=== PATIENT | female | born 1965 | race Caucasian/White ===

== ENCOUNTER 2016-08-12 08:25 | Emergency (ER) | payer OTHER ==
[~2016-08-12 08:25] MED LIST: ALBU17IN INH; ASPI325T PO; AZIT250T3 PO; CEFD1CAP8 PO; CETI10TA PO; CIPR500T89 PO; FLAG500T PO; OMEP20CA3 PO; OXYC1TAB23 PO; PERCOCET PO; REGL10TA6 PO; TYLE325T5 PO; ZYRT10CA PO
[2016-08-12] MEDS ORDERED: ASPIRIN 81 MG CHEW TABLET As Ordered ONE (08:51)
[2016-08-12] MEDS ORDERED: ONDANSETRON 4MG/2ML VIAL (J2405) As Ordered ONE (08:52)
[2016-08-12] MEDS ORDERED: MORPHINE 2 MG/ML 1ML SYRINGE As Ordered ONE ×3 (08:52→09:47)
--- NOTE | 2016-08-12 09:26 | REP ---
Clinical: chest pain. Comparison: 10/28/2014. Findings: The mediastinum and cardiac silhouette are stable and within normal limits for portable technique. The lung meza are clear without acute consolidation, effusion, or pneumothorax. Skeletal structures are intact. Impression: Normal portable chest x-ray Signed by Crow Mcbride MD 08/12/2016 09:17 A
[2016-08-12 10:11] LABS: BASO % 0.3 % (0.0-1.0); EOS % 0.5 % (0.0-3.0); LARGE UNSTAINED CELL # 0.1 K/mm3 (0.0-0.4); LARGE UNSTAINED CELL % 2.7 % (0.0-4.0); LYMPH # 0.7 K/mm3 (1.5-4.5); LYMPH % 15.5 % (24.0-44.0); MEAN CORPUSCULAR HEMOGLOBIN 28.7 pg (27.0-33.0); MEAN CORPUSCULAR HGB CONC 32.1 g/dl (32.0-36.5); MEAN CORPUSCULAR VOLUME 89.4 fl (80.0-96.0); MONO # 0.2 K/mm3 (0.0-0.8); MONO % 5.5 % (0.0-5.0); NEUTROPHILS # 3.4 K/mm3 (1.8-7.7); NEUTROPHILS % 75.5 % (36.0-66.0); PLATELET COUNT, AUTOMATED 381 k/mm3 (150-450); RED CELL DISTRIBUTION WIDTH 12.5 % (11.5-14.5); WHITE BLOOD COUNT 4.4 K/mm3 (4.0-10.0)
[2016-08-12 10:37] LABS: ANION GAP 11 MEQ/L (8-16); BLOOD UREA NITROGEN 15 MG/DL (7-18); CALCIUM LEVEL 9.8 MG/DL (8.5-10.1); CARBON DIOXIDE LEVEL 29 MEQ/L (21-32); CHLORIDE LEVEL 101 MEQ/L (98-107); CREATININE FOR GFR 0.65 MG/DL (0.55-1.02); GLOMERULAR FILTRATION RATE > 60.0 (>51); GLUCOSE, FASTING 112 MG/DL (70-105); SODIUM LEVEL 141 MEQ/L (136-145)
[2016-08-12] MEDS ORDERED: ISOVUE-370 76% 100ML VIAL (Q9967) As Ordered ONE (10:52)
--- NOTE | 2016-08-12 11:24 | REP ---
Clinical: Acute chest pain. Technique: Axial contrast enhanced images from the thoracic inlet to the upper abdomen using 100 ml Isovue 370 intravenous contrast material with coronal and sagittal re-formations. Findings: Satisfactory enhancement of the pulmonary vasculature is achieved and no filling defects are identified to suggest pulmonary embolus. Thoracic aorta is normal caliber without aneurysm or dissection. Heart and pericardium are normal. Bilateral lung meza are well aerated with a small focus of atelectasis and possible early infiltrate involving the anterior left lower lobe (images 65 - 80). No nodule or mass lesion. No pleural effusion/reaction. No pneumothorax. No adenopathy. Impression: 1. No evidence for pulmonary embolus. 2. Very subtle area of atelectasis/early infiltrate involving the left lower lobe should be correlated with physical examination. Signed by Crow Mcbride MD 08/12/2016 11:15 A
[2016-08-12] MEDS ORDERED: PERCOCET 5MG/325MG TAB As Ordered ONE (11:26)
--- NOTE | 2016-08-12 13:36 | EDDOCDS ---
Physician Documentation [facility] Name: Delores Salgado Age: 51 yrs Sex: Female : 1965 Arrival Date: 08/12/2016 Time: 08:25 Bed 11 Private MD: David Becerril PA-C Disposition: 08/12/16 13:04 Discharged to Home/Self Care. Impression: Chest pain, unspecified, Abnormal findings on diagnostic imaging of lung. - Condition is Stable. - Discharge Instructions: Nonspecific Chest Pain. - Prescriptions for Colace 100 mg Oral Capsule - take 1 tablet by ORAL route every 12 hours; 8 tablet. Percocet 5- 325 mg Oral Tablet - take 1 tablet by ORAL route every 8-12 hours As needed MDD: 4 tabs; 10 tablet. - Medication Reconciliation, Local Pharmacy Hours form. - Follow up: David Becerril; When: Call to arrange an appointment; Reason: Continuance of care. - Problem is new. - Symptoms are unchanged. - Notes: You have been evalutated for chest pain. Your CT showed ateletasis verses infiltrate or early infection. You are currently on an antibiotic that is appropriate for a developing pneumonia. Please follow up with us within the next 1-2 days if you are not feeling better. If you are improving, I would like you to follow up with your PCP on Monday. Historical: - Allergies: PENICILLINS (Unknown); - Home Meds: 1. metoclopramide HCl 10 mg Oral tab QID prn 2. omeprazole 20 mg Oral cpDR 1 cap once daily (Last dose: 08/11/2016) 3. Tussionex Pennkinetic ER 10-8 mg/5 mL Oral su12 5 mL every 12 hours 4. clarithromycin 500 mg Oral tab 1 tab every 12 hours 5. fluticasone 50 mcg/actuation nasal spsn 1 spray once daily - PMHx: GERD; - PSHx: Appendectomy; Hysterectomy; Tonsillectomy; Adenoidectomy; Cholecystectomy; - Social history: Smoking status: Patient states was never smoker of tobacco. No barriers to communication noted, The patient speaks fluent Bengali. - Family history: Not pertinent. - : The pt / caregiver states he / she is not on anticoagulants. Home medication list is obtained from the patient. - Exposure Risk Screening:: None identified. NETWORKER: 08/12 08:40 LMP N/A - Hysterectomy jjr Vital Signs: 08:53 BP 118 / 72; Pulse 90; Resp 18; Temp 97.6(O); Pulse Ox 95% on R/A; Weight 40.37 kg / 89 dem1 lbs; Height 5 ft. 2 in. (157.48 cm); Pain 9/10; 11:19 BP 109 / 68 (auto/); pml 11:20 Pulse 88 MON; Pulse Ox 97% ; pml 11:34 Pulse 84 MON; Pulse Ox 96% ; pml 11:34 BP 111 / 63 (auto/); pml 11:49 Pulse 84 MON; Pulse Ox 95% ; pml 11:49 BP 100 / 63 (auto/); pml 12:04 Pulse 86 MON; Pulse Ox 95% ; pml 12:04 BP 98 / 64 (auto/); pml 12:19 Pulse 90 MON; Pulse Ox 97% ; pml 12:19 BP 114 / 61 (auto/); pml 12:30 Pain 6/10; pml 12:34 Pulse 90 MON; Pulse Ox 94% ; pml 12:34 BP 104 / 58 (auto/); pml 12:49 Pulse 84 MON; Pulse Ox 94% ; pml 12:49 BP 99 / 60 (auto/); pml 13:04 Pulse 94 MON; Pulse Ox 97% ; pml 13:04 BP 110 / 69 (auto/); pml 13:19 Pulse 82 MON; Pulse Ox 96% ; pml 13:19 BP 106 / 65 (auto/); pml 13:33 BP 102 / 59; Pulse 82; Resp 18; Temp 97.9; Pulse Ox 98% ; Pain 6/10; pml 08:53 Body Mass Index 16.28 (40.37 kg, 157.48 cm) dem1 MDM: 08:28 Aspirin Chewable Tablet 324 mg PO once ordered. fg 08:28 Cake Batter Mixer/Pulse Ox/q 30 min VS ordered. fg 08:28 IV Saline Lock ordered. fg 08:28 Rhythm Strip to chart ordered. fg 08:28 Undress patient appropriately for examination ordered. fg 08:29 Basic Metabolic Profile Ordered. EDMS 08:29 CBC with Diff Ordered. EDMS 08:29 Cardiac Injury Profile Ordered. EDMS 08:29 Troponin Ordered. EDMS 08:30 portable chest Ordered. EDMS 08:30 ECG WITH READING ER PHYS+CARDIAG ordered. EDMS 08:37 morphine 2 mg IVP once ordered. fg 08:37 Ondansetron 4 mg IVP once ordered. fg 08:38 CT Chest Angio R/O PE Ordered. EDMS 08:39 Urine Culture Ordered. EDMS 08:39 Urinalysis Ordered. EDMS 09:29 Financial registration complete. mm15 09:46 morphine 2 mg IVP once ordered. fg 09:51 [facility] Payment Agreement was scanned into [employer] and attached to record. mm15 11:26 oxyCODONE-acetaminophen 5 mg-325 mg 1 tabs PO once ordered. fg 11:26 -Incentive Spirometer ordered. fg Administered Medications: 08:58 Drug: Ondansetron 4 mg [ondansetron HCl 2 mg/mL intravenous solution (2 mL)] Route: pml IVP; Site: left antecubital; 08:59 Drug: Aspirin 324 mg [aspirin 81 mg chewable tablet (4 tabs)] Route: PO; pml 08:59 Drug: morphine 2 mg [morphine 2 mg/mL intravenous cartridge (1 mL)] Route: IVP; Site: pml left antecubital; 09:20 Follow up: Response: No significant change.; Pain is unchanged, physician notified pml 09:49 Drug: morphine 2 mg [morphine 2 mg/mL intravenous cartridge (1 mL)] Route: IVP; Site: pml left antecubital; 11:28 Drug: oxyCODONE-acetaminophen 1 tabs [oxycodone-acetaminophen 5 mg-325 mg tablet (1 pml tabs)] Route: PO; 12:30 Follow up: Pain 6/10 Adult; Response: Pain is decreased pml 13:33 Follow up: Response: Confirmed pt not driving. pml Signatures: Dispatcher [employer] EDMS Dorothy Whitaker RN RN jjr Quay, Paulina, RN RN pml McGrath, Marlynn mm15 Hyacinth Coyle MD MD fg The chart was reviewed and I authenticate all verbal orders and agree with the evaluation and treatment provided.Attachments: 09:51 [facility] Payment Agreement mm15 MTDD
--- NOTE | 2016-08-12 13:36 | EDDOCDS ---
Nurse's Notes [facility] Name: Delores Salgado Age: 51 yrs Sex: Female : 1965 Arrival Date: 08/12/2016 Time: 08:25 Bed 11 Private MD: David Becerril PA-C Diagnosis: Chest pain, unspecified;Abnormal findings on diagnostic imaging of lung Presentation: 08/12 08:30 Presenting complaint: Patient states: left lateral chest pain began yesterday, jjr aggravated by movement, this morning developed dizziness. Adult Sepsis Screening: The patient does not have new or worsening altered mentation. Patient's respiratory rate is less than 22. Systolic blood pressure is greater than 100. Patient has a qSOFA score of 0- Negative Sepsis Screen. Suicide/Homicide risk assessment- the patient denies having any suicidal and/or homicidal ideations and does not present with any other emotional, behavioral or mental health complaints. Status: Patient is not a clinical services consultant or dependent. Transition of care: patient was not received from another setting of care. 08:30 Acuity: WILLIE Level 3 jjr 08:30 Method Of Arrival: Walkin/Carried/Asstd jjr 13:35 Aspirin was not taken prior to arrival. pml Triage Assessment: 08:39 General: Appears in no apparent distress, slender, holding left side. Pain: Location: jjr left lateral anterior chest. HIV screening NA for this visit Offered previously. Cardiovascular: Chest pain is described as Pain is 9 out of 10 on a pain scale. radiates to left back episodes are continuous began yesterday. CHRONIC DISEASE EPIDEMIOLOGIST: 08:40 LMP N/A - Hysterectomy jjr Historical: - Allergies: PENICILLINS (Unknown); - Home Meds: 1. metoclopramide HCl 10 mg Oral tab QID prn 2. omeprazole 20 mg Oral cpDR 1 cap once daily (Last dose: 08/11/2016) 3. Tussionex Pennkinetic ER 10-8 mg/5 mL Oral su12 5 mL every 12 hours 4. clarithromycin 500 mg Oral tab 1 tab every 12 hours 5. fluticasone 50 mcg/actuation nasal spsn 1 spray once daily - PMHx: GERD; - PSHx: Appendectomy; Hysterectomy; Tonsillectomy; Adenoidectomy; Cholecystectomy; - Social history: Smoking status: Patient states was never smoker of tobacco. No barriers to communication noted, The patient speaks fluent [place]. - Family history: Not pertinent. - : The pt / caregiver states he / she is not on anticoagulants. Home medication list is obtained from the patient. - Exposure Risk Screening:: None identified. Screenin:59 Screening information is obtained from the patient. Fall risk: No risks identified. pml Assistance ADL's: requires no assistance with activities of daily living. Abuse/DV Screen: The patient / caregiver reports he/she is: not in a situation that causes fear, pain or injury. Nutritional screening: No deficits noted. Advance Directives: Currently, there is no health care proxy. home support is adequate. Assessment: 08:59 General: Appears in no apparent distress, Behavior is appropriate for age, cooperative. pml Pain: Location: left scapular area, left subscapular area, anterior aspect of left upper chest and left breast Pain currently is 9 out of 10 on a pain scale. Pain: Aggravated by repositioning, inspiration. Neurological: Level of Consciousness is awake, alert, Oriented to person, place, time. Cardiovascular: Capillary refill < 3 seconds Rhythm is sinus rhythm No ectopy. Respiratory: Airway is patent Respiratory effort is even, unlabored. GI: Abdomen is non- distended. Derm: Skin is pink, warm & dry. 09:45 General: resting on stretcher, reports pain is improved, 7/10. MD Coyle aware. resps pml easy and unlabored, skin p/w/d. sinus rhythm on monitor. reports nausea is improved. 10:22 General: Appears in no apparent distress, comfortable. Pain: Location: left subscapular pml area and left scapular area Pain currently is 6 out of 10 on a pain scale. Neurological: Level of Consciousness is awake, alert, Oriented to person, place, time. Cardiovascular: Capillary refill < 3 seconds Rhythm is sinus rhythm No ectopy. Respiratory: Airway is patent Respiratory effort is even, unlabored. Derm: Skin is pink, warm & dry. 11:20 General: resting on stretcher, resps easy and unlabored, reports pain worsens 7/10. pml sinus rhythm on monitor, skin p/w/d. . 12:05 General: incentive spirometer teaching done. pt demonstrated understanding. . pml 13:32 General: Appears in no apparent distress, comfortable, Behavior is appropriate for age, pml cooperative. Pain: Location: left subscapular area and left scapular area Pain currently is 6 out of 10 on a pain scale. Neurological: Level of Consciousness is awake, alert, Oriented to person, place, time. Cardiovascular: Capillary refill < 3 seconds Rhythm is sinus rhythm No ectopy. Respiratory: Airway is patent Respiratory effort is even, unlabored. Derm: Skin is pink, warm & dry. Vital Signs: 08:53 BP 118 / 72; Pulse 90; Resp 18; Temp 97.6(O); Pulse Ox 95% on R/A; Weight 40.37 kg; dem1 Height 5 ft. 2 in. (157.48 cm); Pain 9/10; 11:19 BP 109 / 68 (auto/); pml 11:20 Pulse 88 MON; Pulse Ox 97% ; pml 11:34 Pulse 84 MON; Pulse Ox 96% ; pml 11:34 BP 111 / 63 (auto/); pml 11:49 Pulse 84 MON; Pulse Ox 95% ; pml 11:49 BP 100 / 63 (auto/); pml 12:04 Pulse 86 MON; Pulse Ox 95% ; pml 12:04 BP 98 / 64 (auto/); pml 12:19 Pulse 90 MON; Pulse Ox 97% ; pml 12:19 BP 114 / 61 (auto/); pml 12:30 Pain 6/10; pml 12:34 Pulse 90 MON; Pulse Ox 94% ; pml 12:34 BP 104 / 58 (auto/); pml 12:49 Pulse 84 MON; Pulse Ox 94% ; pml 12:49 BP 99 / 60 (auto/); pml 13:04 Pulse 94 MON; Pulse Ox 97% ; pml 13:04 BP 110 / 69 (auto/); pml 13:19 Pulse 82 MON; Pulse Ox 96% ; pml 13:19 BP 106 / 65 (auto/); pml 13:33 BP 102 / 59; Pulse 82; Resp 18; Temp 97.9; Pulse Ox 98% ; Pain 6/10; pml 08:53 Body Mass Index 16.28 (40.37 kg, 157.48 cm) [email or web address] ED Course: 08:26 Patient visited by Marcellus Oreilly Reg. lg 08:26 David Becerril is Private Physician. lg 08:26 Patient moved to Waiting lg 08:27 Alexandra Anthony RN is Primary Nurse. jjr 08:27 Patient moved to 10 jjr 08:28 Hyacinth Coyle MD is Attending Physician. fg 08:28 Patient visited by Hyacinth Coyle MD. fg 08:29 Patient moved to 11 jjr 08:30 Triage Initiated jjr 08:43 EKG done. (by ED staff). Reviewed by Hyacinth Coyle MD. dem1 08:47 Patient visited by Komal Luke. dem1 08:54 Patient visited by Komal Luke. dem1 08:54 Patient has correct armband on for positive identification. Placed in gown. Bed in low dem1 position. Call light in reach. Side rails up X 1. rn manager on. Pulse ox on. NIBP on. 08:55 Patient visited by Komal Luke. dem1 08:59 The patient / caregiver is instructed regarding the plan of care and ED course. pml 08:59 Inserted peripheral IV: 20gauge IV in left antecubital area Patient tolerated the pml procedure well. 09:06 Nikki Milton RN is Primary Nurse. pml 09:27 Patient visited by Nikki Milton RN. pml 09:43 portable chest Returned. EDMS 09:51 [facility] Payment Agreement was scanned into [employer] and attached to record. mm15 10:24 Patient visited by Nikki Milton RN. pml 11:02 Patient visited by Mamta He PCA. ct3 11:59 CT Chest Angio R/O PE Returned. EDMS 12:03 Patient visited by Mamta He PCA. ct3 12:07 Patient visited by Nikki Milton RN. pml 12:42 Patient visited by Mamta He PCA. ct3 13:03 David Becerril is Referral Physician. fg 13:33 Discontinued lock intact, bleeding controlled, pressure dressing applied, No pml redness/swelling at site. No procedures done that require assistance. Administered Medications: 08:58 Drug: Ondansetron 4 mg [ondansetron HCl 2 mg/mL intravenous solution (2 mL)] Route: pml IVP; Site: left antecubital; 08:59 Drug: Aspirin 324 mg [aspirin 81 mg chewable tablet (4 tabs)] Route: PO; pml 08:59 Drug: morphine 2 mg [morphine 2 mg/mL intravenous cartridge (1 mL)] Route: IVP; Site: [facility] left antecubital; 09:20 Follow up: Response: No significant change.; Pain is unchanged, physician notified pml 09:49 Drug: morphine 2 mg [morphine 2 mg/mL intravenous cartridge (1 mL)] Route: IVP; Site: [facility] left antecubital; 11:28 Drug: oxyCODONE-acetaminophen 1 tabs [oxycodone-acetaminophen 5 mg-325 mg tablet (1 pml tabs)] Route: PO; 12:30 Follow up: Pain /10 Adult; Response: Pain is decreased pml 13:33 Follow up: Response: Confirmed pt not driving. [facility] Order Results: Lab Order: Basic Metabolic Profile; SPEC'M 08/12/16 10:01 Test: GLUCOSE, FASTING; Value: 112; Range: 70-105; Abnormal: Above high normal; Units: MG/DL; Status: F Test: BLOOD UREA NITROGEN; Value: 15; Range: 7-18; Units: MG/DL; Status: F Test: CREATININE FOR GFR; Value: 0.65; Range: 0.55-1.02; Units: MG/DL; Status: F Test: GLOMERULAR FILTRATION RATE; Value: > 60.0; Range: >51; Status: F Test: SODIUM LEVEL; Value: 141; Range: 136-145; Units: MEQ/L; Status: F Test: POTASSIUM SERUM; Value: 4.0; Range: 3.5-5.1; Units: MEQ/L; Status: F Test: CHLORIDE LEVEL; Value: 101; Range: 98-107; Units: MEQ/L; Status: F Test: CARBON DIOXIDE LEVEL; Value: 29; Range: 21-32; Units: MEQ/L; Status: F Test: ANION GAP; Value: 11; Range: 8-16; Units: MEQ/L; Status: F Test: CALCIUM LEVEL; Value: 9.8; Range: 8.5-10.1; Units: MG/DL; Status: F Test Note: ; Units are mL/min/1.73 m2 Chronic Kidney Disease Staging per NKF: Stage I & II GFR >=60 Normal to Mildly Decreased Stage III GFR 30-59 Moderately Decreased Stage IV GFR 15-29 Severely Decreased Stage V GFR <15 Very Little GFR Left ESRD GFR <15 on CODING FILE CLERK Lab Order: CBC with Diff; SPEC'M 08/12/16 10:01 Test: WHITE BLOOD COUNT; Value: 4.4; Range: 4.0-10.0; Units: K/mm3; Status: F Test: RED BLOOD COUNT; Value: 4.30; Range: 4.00-5.40; Units: M/mm3; Status: F Test: HEMOGLOBIN; Value: 12.3; Range: 12.0-16.0; Units: g/dl; Status: F Test: HEMATOCRIT; Value: 38.4; Range: 36.0-47.0; Units: %; Status: F Test: MEAN CORPUSCULAR VOLUME; Value: 89.4; Range: 80.0-96.0; Units: fl; Status: F Test: MEAN CORPUSCULAR HEMOGLOBIN; Value: 28.7; Range: 27.0-33.0; Units: pg; Status: F Test: MEAN CORPUSCULAR HGB CONC; Value: 32.1; Range: 32.0-36.5; Units: g/dl; Status: F Test: RED CELL DISTRIBUTION WIDTH; Value: 12.5; Range: 11.5-14.5; Units: %; Status: F Test: PLATELET COUNT, AUTOMATED; Value: 381; Range: 150-450; Units: k/mm3; Status: F Test: NEUTROPHILS %; Value: 75.5; Range: 36.0-66.0; Abnormal: Above high normal; Units: %; Status: F Test: LYMPH %; Value: 15.5; Range: 24.0-44.0; Abnormal: Below low normal; Units: %; Status: F Test: MONO %; Value: 5.5; Range: 0.0-5.0; Abnormal: Above high normal; Units: %; Status: F Test: EOS %; Value: 0.5; Range: 0.0-3.0; Units: %; Status: F Test: BASO %; Value: 0.3; Range: 0.0-1.0; Units: %; Status: F Test: LARGE UNSTAINED CELL %; Value: 2.7; Range: 0.0-4.0; Units: %; Status: F Test: NEUTROPHILS #; Value: 3.4; Range: 1.8-7.7; Units: K/mm3; Status: F Test: LYMPH #; Value: 0.7; Range: 1.5-4.5; Abnormal: Below low normal; Units: K/mm3; Status: F Test: MONO #; Value: 0.2; Range: 0.0-0.8; Units: K/mm3; Status: F Test: EOS #; Value: 0.0; Range: 0.0-0.50; Units: K/mm3; Status: F Test: BASO #; Value: 0.0; Range: 0.0-0.2; Units: K/mm3; Status: F Test: LARGE UNSTAINED CELL #; Value: 0.1; Range: 0.0-0.4; Units: K/mm3; Status: F Lab Order: Cardiac Injury Profile; SPEC'M 08/12/16 10:01 Test: CPK CREATINE PHOSPHOKINASE; Value: 79; Range: 26-192; Units: U/L; Status: F Test: CK-MB VALUE MASS; Value: 1.0; Range: 0.0-3.6; Units: NG/ML; Status: F Test: MB/CK RELATIVE INDEX; Value: 1.26; Range: < OR =4; Status: F Test Note: ; DIAGNOSIS CRITERIA MMB ng/ml Relative Index (RI) NON-AMI < or = 5 N/A CELIS ZONE > 5 < or = 4 AMI > 5 > 4 Lab Order: Troponin; SPEC'M 08/12/16 10:01 Test: TROPONIN I; Value: < 0.02; Range: < 0.10; Units: NG/ML; Status: F Test Note: ; Troponin I Reference Interval for Pie Digital LOCI: 99th Percentile= 0.00-0.045 ng/ml Risk Stratification: <= 0.10 ng/ml Decreased Risk for Adverse Clinical Events. 0.10-1.50 ng/ml Increased Risk for Adverse Clinical Events. Evaluation of additional criterion and/or repeat testing in 2-6 hours is suggested to rule out myocardial damage. >= 1.50 ng/ml Indicative of Myocardial Injury. Radiology Order: portable chest Test: portable chest REASON FOR EXAMINATION: Chest Pain; Clinical: chest pain.; ; Comparison: 10/28/2014.; ; Findings:; The mediastinum and cardiac silhouette are stable and within normal limits for; portable technique. The lung meza are clear without acute consolidation,; effusion, or pneumothorax. Skeletal structures are intact.; ; Impression:; Normal portable chest x-ray; ; ; Signed by; Crow Mcbride MD 08/12/2016 09:17 A; Radiology Order: CT Chest Angio R/O PE Test: CT Chest Angio R/O PE REASON FOR EXAMINATION: Chest Pain; Clinical: Acute chest pain.; ; Technique: Axial contrast enhanced images from the thoracic inlet to the upper; abdomen using 100 ml Isovue 370 intravenous contrast material with coronal and; sagittal re-formations.; ; Findings: Satisfactory enhancement of the pulmonary vasculature is achieved and; no filling defects are identified to suggest pulmonary embolus. Thoracic aorta; is normal caliber without aneurysm or dissection. Heart and pericardium are; normal. Bilateral lung meza are well aerated with a small focus of atelectasis; and possible early infiltrate involving the anterior left lower lobe (images 65 -; 80). No nodule or mass lesion. No pleural effusion/reaction. No pneumothorax.; No adenopathy.; ; Impression:; 1. No evidence for pulmonary embolus.; 2. Very subtle area of atelectasis/early infiltrate involving the left lower; lobe should be correlated with physical examination.; ; ; Signed by; Crow Mcbride MD 08/12/2016 11:15 A; Outcome: 13:04 Discharge ordered by Provider. fg 13:33 Discharge Assessment: Patient awake, alert and oriented x 3. No cognitive and/or pml functional deficits noted. Patient verbalized understanding of disposition instructions. patient administered narcotics - no. The following High Risk Discharge criteria are identified: None. Discharged to home ambulatory. Condition: good Condition: stable. Discharge instructions given to patient, Instructed on discharge instructions, follow up and referral plans. medication usage, no driving heavy equipment, Demonstrated understanding of instructions, medications, Pt was receptive of discharge instructions/ teaching. Prescriptions given X 2. No special radiology studies were completed. Property sent home with patient. 13:35 Patient left the ED. pml Signatures: Dispatcher [employer] EDMarcellus Bennett, Reg Reg Dorothy Lamar RN RN Mamta Morrow, STONE SANDBLASTER STONE SANDBLASTER ct3 [place],Nikki,PAT RN pml Komal Luke dem1 Renetta Braswell mm15 Hyacinth Coyle MD MD fg MTDD
--- NOTE | 2016-08-12 19:53 | ECGEPIP ---
Stationary ECG Study [facility] - ED Test Date: 2016-08-12 Pat Name: REGAN RUBIO Department: Room: - Gender: F Steel Chipper: kenn : 1965 Requested By: SAI Gardner Order Number: [id number] Reading MD: Priya Guevara Measurements Intervals [place] Rate: 89 P: 70 CT: 135 QRS: 57 QRSD: 100 T: 34 QT: 386 QTc: 470 Interpretive Statements SINUS RHYTHM INCOMPLETE RIGHT BUNDLE BRANCH BLOCK DECREASED RATE 10/28/14 Electronically Signed On 08-12-2016 19:52:57 EST by Priya Guevara
--- NOTE | 2016-08-14 14:36 | EDDOCDS ---
Nurse's Notes [facility] Name: Regan Salgado Age: 51 yrs Sex: Female : 1965 Arrival Date: 08/12/2016 Time: 08:25 Bed 11 Private MD: David Becerril PA-C Diagnosis: Chest pain, unspecified;Abnormal findings on diagnostic imaging of lung Presentation: 08/12 08:30 Presenting complaint: Patient states: left lateral chest pain began yesterday, jjr aggravated by movement, this morning developed dizziness. Adult Sepsis Screening: The patient does not have new or worsening altered mentation. Patient's respiratory rate is less than 22. Systolic blood pressure is greater than 100. Patient has a qSOFA score of 0- Negative Sepsis Screen. Suicide/Homicide risk assessment- the patient denies having any suicidal and/or homicidal ideations and does not present with any other emotional, behavioral or mental health complaints. Status: Patient is not a technical services consultant or dependent. Transition of care: patient was not received from another setting of care. 08:30 Acuity: WILLIE Level 3 jjr 08:30 Method Of Arrival: Walkin/Carried/Asstd jjr 13:35 Aspirin was not taken prior to arrival. pml Triage Assessment: 08:39 General: Appears in no apparent distress, slender, holding left side. Pain: Location: jjr left lateral anterior chest. HIV screening NA for this visit Offered previously. Cardiovascular: Chest pain is described as Pain is 9 out of 10 on a pain scale. radiates to left back episodes are continuous began yesterday. SCRUB TECH: 08:40 LMP N/A - Hysterectomy jjr Historical: - Allergies: PENICILLINS (Unknown); - Home Meds: 1. metoclopramide HCl 10 mg Oral tab QID prn 2. omeprazole 20 mg Oral cpDR 1 cap once daily (Last dose: 08/11/2016) 3. Tussionex Pennkinetic ER 10-8 mg/5 mL Oral su12 5 mL every 12 hours 4. clarithromycin 500 mg Oral tab 1 tab every 12 hours 5. fluticasone 50 mcg/actuation nasal spsn 1 spray once daily - PMHx: GERD; - PSHx: Appendectomy; Hysterectomy; Tonsillectomy; Adenoidectomy; Cholecystectomy; - Social history: Smoking status: Patient states was never smoker of tobacco. No barriers to communication noted, The patient speaks fluent Latvian. - Family history: Not pertinent. - : The pt / caregiver states he / she is not on anticoagulants. Home medication list is obtained from the patient. - Exposure Risk Screening:: None identified. Screenin:59 Screening information is obtained from the patient. Fall risk: No risks identified. pml Assistance ADL's: requires no assistance with activities of daily living. Abuse/DV Screen: The patient / caregiver reports he/she is: not in a situation that causes fear, pain or injury. Nutritional screening: No deficits noted. Advance Directives: Currently, there is no health care proxy. home support is adequate. Assessment: 08:59 General: Appears in no apparent distress, Behavior is appropriate for age, cooperative. pml Pain: Location: left scapular area, left subscapular area, anterior aspect of left upper chest and left breast Pain currently is 9 out of 10 on a pain scale. Pain: Aggravated by repositioning, inspiration. Neurological: Level of Consciousness is awake, alert, Oriented to person, place, time. Cardiovascular: Capillary refill < 3 seconds Rhythm is sinus rhythm No ectopy. Respiratory: Airway is patent Respiratory effort is even, unlabored. GI: Abdomen is non- distended. Derm: Skin is pink, warm & dry. 09:45 General: resting on stretcher, reports pain is improved, 7/10. MD Coyle aware. resps pml easy and unlabored, skin p/w/d. sinus rhythm on monitor. reports nausea is improved. 10:22 General: Appears in no apparent distress, comfortable. Pain: Location: left subscapular pml area and left scapular area Pain currently is 6 out of 10 on a pain scale. Neurological: Level of Consciousness is awake, alert, Oriented to person, place, time. Cardiovascular: Capillary refill < 3 seconds Rhythm is sinus rhythm No ectopy. Respiratory: Airway is patent Respiratory effort is even, unlabored. Derm: Skin is pink, warm & dry. 11:20 General: resting on stretcher, resps easy and unlabored, reports pain worsens 7/10. pml sinus rhythm on monitor, skin p/w/d. . 12:05 General: incentive spirometer teaching done. pt demonstrated understanding. . pml 13:32 General: Appears in no apparent distress, comfortable, Behavior is appropriate for age, pml cooperative. Pain: Location: left subscapular area and left scapular area Pain currently is 6 out of 10 on a pain scale. Neurological: Level of Consciousness is awake, alert, Oriented to person, place, time. Cardiovascular: Capillary refill < 3 seconds Rhythm is sinus rhythm No ectopy. Respiratory: Airway is patent Respiratory effort is even, unlabored. Derm: Skin is pink, warm & dry. Vital Signs: 08:53 BP 118 / 72; Pulse 90; Resp 18; Temp 97.6(O); Pulse Ox 95% on R/A; Weight 40.37 kg; dem1 Height 5 ft. 2 in. (157.48 cm); Pain 9/10; 11:19 BP 109 / 68 (auto/); pml 11:20 Pulse 88 MON; Pulse Ox 97% ; pml 11:34 Pulse 84 MON; Pulse Ox 96% ; pml 11:34 BP 111 / 63 (auto/); pml 11:49 Pulse 84 MON; Pulse Ox 95% ; pml 11:49 BP 100 / 63 (auto/); pml 12:04 Pulse 86 MON; Pulse Ox 95% ; pml 12:04 BP 98 / 64 (auto/); pml 12:19 Pulse 90 MON; Pulse Ox 97% ; pml 12:19 BP 114 / 61 (auto/); pml 12:30 Pain 6/10; pml 12:34 Pulse 90 MON; Pulse Ox 94% ; pml 12:34 BP 104 / 58 (auto/); pml 12:49 Pulse 84 MON; Pulse Ox 94% ; pml 12:49 BP 99 / 60 (auto/); pml 13:04 Pulse 94 MON; Pulse Ox 97% ; pml 13:04 BP 110 / 69 (auto/); pml 13:19 Pulse 82 MON; Pulse Ox 96% ; pml 13:19 BP 106 / 65 (auto/); pml 13:33 BP 102 / 59; Pulse 82; Resp 18; Temp 97.9; Pulse Ox 98% ; Pain 6/10; pml 08:53 Body Mass Index 16.28 (40.37 kg, 157.48 cm) [facility] ED Course: 08:26 Patient visited by Marcellus Oreilly Reg. lg 08:26 David Becerril is Private Physician. lg 08:26 Patient moved to Waiting lg 08:27 Alexandra Anthony RN is Primary Nurse. jjr 08:27 Patient moved to 10 jjr 08:28 Hyacinth Coyle MD is Attending Physician. fg 08:28 Patient visited by Hyacinth Coyle MD. fg 08:29 Patient moved to 11 jjr 08:30 Triage Initiated jjr 08:43 EKG done. (by ED staff). Reviewed by Hyacinth Coyle MD. dem1 08:47 Patient visited by Komal Luke. dem1 08:54 Patient visited by Komal Luke. dem1 08:54 Patient has correct armband on for positive identification. Placed in gown. Bed in low dem1 position. Call light in reach. Side rails up X 1. quality assurance monitor body on. Pulse ox on. NIBP on. 08:55 Patient visited by Komal Luke. dem1 08:59 The patient / caregiver is instructed regarding the plan of care and ED course. pml 08:59 Inserted peripheral IV: 20gauge IV in left antecubital area Patient tolerated the pml procedure well. 09:06 Nikki Milton RN is Primary Nurse. pml 09:27 Patient visited by Nikki Milton RN. pml 09:43 portable chest Returned. EDMS 09:51 [facility] Payment Agreement was scanned into [employer] and attached to record. mm15 10:24 Patient visited by Nikki Mitlon RN. pml 11:02 Patient visited by Mamta He PCA. ct3 11:59 CT Chest Angio R/O PE Returned. EDMS 12:03 Patient visited by Mamta He PCA. ct3 12:07 Patient visited by Nikki Milton RN. pml 12:42 Patient visited by Mamta He PCA. ct3 13:03 David Becerril is Referral Physician. fg 13:33 Discontinued lock intact, bleeding controlled, pressure dressing applied, No pml redness/swelling at site. No procedures done that require assistance. 20:03 EKG-ADULT Returned. EDMS 08/13 09:21 T-Sheet-- Draft Copy was scanned into [employer] and attached to record. gb 09:21 ECG/EKG was scanned into [employer] and attached to record. gb Administered Medications: 08/12 08:58 Drug: Ondansetron 4 mg [ondansetron HCl 2 mg/mL intravenous solution (2 mL)] Route: pml IVP; Site: left antecubital; 08:59 Drug: Aspirin 324 mg [aspirin 81 mg chewable tablet (4 tabs)] Route: PO; pml 08:59 Drug: morphine 2 mg [morphine 2 mg/mL intravenous cartridge (1 mL)] Route: IVP; Site: [facility] left antecubital; 09:20 Follow up: Response: No significant change.; Pain is unchanged, physician notified pml 09:49 Drug: morphine 2 mg [morphine 2 mg/mL intravenous cartridge (1 mL)] Route: IVP; Site: [facility] left antecubital; 11:28 Drug: oxyCODONE-acetaminophen 1 tabs [oxycodone-acetaminophen 5 mg-325 mg tablet (1 pml tabs)] Route: PO; 12:30 Follow up: Pain 6/10 Adult; Response: Pain is decreased pml 13:33 Follow up: Response: Confirmed pt not driving. [facility] Order Results: Lab Order: Basic Metabolic Profile; SPEC'M 08/12/16 10:01 Test: GLUCOSE, FASTING; Value: 112; Range: 70-105; Abnormal: Above high normal; Units: MG/DL; Status: F Test: BLOOD UREA NITROGEN; Value: 15; Range: 7-18; Units: MG/DL; Status: F Test: CREATININE FOR GFR; Value: 0.65; Range: 0.55-1.02; Units: MG/DL; Status: F Test: GLOMERULAR FILTRATION RATE; Value: > 60.0; Range: >51; Status: F Test: SODIUM LEVEL; Value: 141; Range: 136-145; Units: MEQ/L; Status: F Test: POTASSIUM SERUM; Value: 4.0; Range: 3.5-5.1; Units: MEQ/L; Status: F Test: CHLORIDE LEVEL; Value: 101; Range: 98-107; Units: MEQ/L; Status: F Test: CARBON DIOXIDE LEVEL; Value: 29; Range: 21-32; Units: MEQ/L; Status: F Test: ANION GAP; Value: 11; Range: 8-16; Units: MEQ/L; Status: F Test: CALCIUM LEVEL; Value: 9.8; Range: 8.5-10.1; Units: MG/DL; Status: F Test Note: ; Units are mL/min/1.73 m2 Chronic Kidney Disease Staging per NKF: Stage I & II GFR >=60 Normal to Mildly Decreased Stage III GFR 30-59 Moderately Decreased Stage IV GFR 15-29 Severely Decreased Stage V GFR <15 Very Little GFR Left ESRD GFR <15 on DIVISION ENGINEER Lab Order: CBC with Diff; SPEC'M 08/12/16 10:01 Test: WHITE BLOOD COUNT; Value: 4.4; Range: 4.0-10.0; Units: K/mm3; Status: F Test: RED BLOOD COUNT; Value: 4.30; Range: 4.00-5.40; Units: M/mm3; Status: F Test: HEMOGLOBIN; Value: 12.3; Range: 12.0-16.0; Units: g/dl; Status: F Test: HEMATOCRIT; Value: 38.4; Range: 36.0-47.0; Units: %; Status: F Test: MEAN CORPUSCULAR VOLUME; Value: 89.4; Range: 80.0-96.0; Units: fl; Status: F Test: MEAN CORPUSCULAR HEMOGLOBIN; Value: 28.7; Range: 27.0-33.0; Units: pg; Status: F Test: MEAN CORPUSCULAR HGB CONC; Value: 32.1; Range: 32.0-36.5; Units: g/dl; Status: F Test: RED CELL DISTRIBUTION WIDTH; Value: 12.5; Range: 11.5-14.5; Units: %; Status: F Test: PLATELET COUNT, AUTOMATED; Value: 381; Range: 150-450; Units: k/mm3; Status: F Test: NEUTROPHILS %; Value: 75.5; Range: 36.0-66.0; Abnormal: Above high normal; Units: %; Status: F Test: LYMPH %; Value: 15.5; Range: 24.0-44.0; Abnormal: Below low normal; Units: %; Status: F Test: MONO %; Value: 5.5; Range: 0.0-5.0; Abnormal: Above high normal; Units: %; Status: F Test: EOS %; Value: 0.5; Range: 0.0-3.0; Units: %; Status: F Test: BASO %; Value: 0.3; Range: 0.0-1.0; Units: %; Status: F Test: LARGE UNSTAINED CELL %; Value: 2.7; Range: 0.0-4.0; Units: %; Status: F Test: NEUTROPHILS #; Value: 3.4; Range: 1.8-7.7; Units: K/mm3; Status: F Test: LYMPH #; Value: 0.7; Range: 1.5-4.5; Abnormal: Below low normal; Units: K/mm3; Status: F Test: MONO #; Value: 0.2; Range: 0.0-0.8; Units: K/mm3; Status: F Test: EOS #; Value: 0.0; Range: 0.0-0.50; Units: K/mm3; Status: F Test: BASO #; Value: 0.0; Range: 0.0-0.2; Units: K/mm3; Status: F Test: LARGE UNSTAINED CELL #; Value: 0.1; Range: 0.0-0.4; Units: K/mm3; Status: F Lab Order: Cardiac Injury Profile; [facility] 08/12/16 10:01 Test: CPK CREATINE PHOSPHOKINASE; Value: 79; Range: 26-192; Units: U/L; Status: F Test: CK-MB VALUE MASS; Value: 1.0; Range: 0.0-3.6; Units: NG/ML; Status: F Test: MB/CK RELATIVE INDEX; Value: 1.26; Range: < OR =4; Status: F Test Note: ; DIAGNOSIS CRITERIA MMB ng/ml Relative Index (RI) NON-AMI < or = 5 N/A CELIS ZONE > 5 < or = 4 AMI > 5 > 4 Lab Order: Troponin; SPEC'M 08/12/16 10:01 Test: TROPONIN I; Value: < 0.02; Range: < 0.10; Units: NG/ML; Status: F Test Note: ; Troponin I Reference Interval for [place] LOCI: 99th Percentile= 0.00-0.045 ng/ml Risk Stratification: <= 0.10 ng/ml Decreased Risk for Adverse Clinical Events. 0.10-1.50 ng/ml Increased Risk for Adverse Clinical Events. Evaluation of additional criterion and/or repeat testing in 2-6 hours is suggested to rule out myocardial damage. >= 1.50 ng/ml Indicative of Myocardial Injury. Radiology Order: portable chest Test: portable chest REASON FOR EXAMINATION: Chest Pain; Clinical: chest pain.; ; Comparison: 10/28/2014.; ; Findings:; The mediastinum and cardiac silhouette are stable and within normal limits for; portable technique. The lung meza are clear without acute consolidation,; effusion, or pneumothorax. Skeletal structures are intact.; ; Impression:; Normal portable chest x-ray; ; ; Signed by; Crow Mcbride MD 08/12/2016 09:17 A; Radiology Order: EKG-ADULT Test: EKG-ADULT REASON FOR EXAMINATION: Chest Pain; Stationary ECG Study; 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; : 1965 Requested By: HYACINTH Gardner; Order Number: [id number] Reading MD: Priya Guevara; Measurements; Intervals [place]; Rate: 89 P: 70; NC: 135 QRS: 57; QRSD: 100 T: 34; QT: 386; QTc: 470; Interpretive Statements; SINUS RHYTHM; INCOMPLETE RIGHT BUNDLE BRANCH BLOCK; DECREASED RATE 10/28/14; Electronically Signed On 08-12-2016 19:52:57 EST by Priya Guevara; Radiology Order: CT Chest Angio R/O PE Test: CT Chest Angio R/O PE REASON FOR EXAMINATION: Chest Pain; Clinical: Acute chest pain.; ; Technique: Axial contrast enhanced images from the thoracic inlet to the upper; abdomen using 100 ml Isovue 370 intravenous contrast material with coronal and; sagittal re-formations.; ; Findings: Satisfactory enhancement of the pulmonary vasculature is achieved and; no filling defects are identified to suggest pulmonary embolus. Thoracic aorta; is normal caliber without aneurysm or dissection. Heart and pericardium are; normal. Bilateral lung meza are well aerated with a small focus of atelectasis; and possible early infiltrate involving the anterior left lower lobe (images 65 -; 80). No nodule or mass lesion. No pleural effusion/reaction. No pneumothorax.; No adenopathy.; ; Impression:; 1. No evidence for pulmonary embolus.; 2. Very subtle area of atelectasis/early infiltrate involving the left lower; lobe should be correlated with physical examination.; ; ; Signed by; Crow Mcbride MD 08/12/2016 11:15 A; Outcome: 13:04 Discharge ordered by Provider. fg 13:33 Discharge Assessment: Patient awake, alert and oriented x 3. No cognitive and/or pml functional deficits noted. Patient verbalized understanding of disposition instructions. patient administered narcotics - no. The following High Risk Discharge criteria are identified: None. Discharged to home ambulatory. Condition: good Condition: stable. Discharge instructions given to patient, Instructed on discharge instructions, follow up and referral plans. medication usage, no driving heavy equipment, Demonstrated understanding of instructions, medications, Pt was receptive of discharge instructions/ teaching. Prescriptions given X 2. No special radiology studies were completed. Property sent home with patient. 13:35 Patient left the ED. pml Signatures: Dispatcher [employer] EDMS Esperanza Simms, Reg Reg gb Marcellus Oreilly, Reg Reg lg Dorothy Whitaker, RN RN Mamta Morrow, ENGINEERED WOOD DESIGNER ENGINEERED WOOD DESIGNER ct3 Nikki Milton,RN RN Komal Márquez1 Renetta Braswell mm15 Hyacinth Coyle MD MD fg Chart Complete MTDD
--- NOTE | 2016-08-14 14:36 | EDDOCDS ---
Physician Documentation [facility] Name: Delores Salgado Age: 51 yrs Sex: Female : 1965 Arrival Date: 08/12/2016 Time: 08:25 Bed 11 Private MD: David Becerril PA-C Disposition: 08/12/16 13:04 Discharged to Home/Self Care. Impression: Chest pain, unspecified, Abnormal findings on diagnostic imaging of lung. - Condition is Stable. - Discharge Instructions: Nonspecific Chest Pain. - Prescriptions for Colace 100 mg Oral Capsule - take 1 tablet by ORAL route every 12 hours; 8 tablet. Percocet 5- 325 mg Oral Tablet - take 1 tablet by ORAL route every 8-12 hours As needed MDD: 4 tabs; 10 tablet. - Medication Reconciliation, Local Pharmacy Hours form. - Work Release Form - 2 day (08/12/16 14:02). pml - Follow up: David Becerril; When: Call to arrange an appointment; Reason: Continuance of care. - Problem is new. - Symptoms are unchanged. - Notes: You have been evalutated for chest pain. Your CT showed ateletasis verses infiltrate or early infection. You are currently on an antibiotic that is appropriate for a developing pneumonia. Please follow up with us within the next 1-2 days if you are not feeling better. If you are improving, I would like you to follow up with your PCP on Monday. Historical: - Allergies: PENICILLINS (Unknown); - Home Meds: 1. metoclopramide HCl 10 mg Oral tab QID prn 2. omeprazole 20 mg Oral cpDR 1 cap once daily (Last dose: 08/11/2016) 3. Tussionex Pennkinetic ER 10-8 mg/5 mL Oral su12 5 mL every 12 hours 4. clarithromycin 500 mg Oral tab 1 tab every 12 hours 5. fluticasone 50 mcg/actuation nasal spsn 1 spray once daily - PMHx: GERD; - PSHx: Appendectomy; Hysterectomy; Tonsillectomy; Adenoidectomy; Cholecystectomy; - Social history: Smoking status: Patient states was never smoker of tobacco. No barriers to communication noted, The patient speaks fluent Qatari. - Family history: Not pertinent. - : The pt / caregiver states he / she is not on anticoagulants. Home medication list is obtained from the patient. - Exposure Risk Screening:: None identified. SALES AND CUSTOMER RELATIONS REP: 08/12 08:40 LMP N/A - Hysterectomy jjr Vital Signs: 08:53 BP 118 / 72; Pulse 90; Resp 18; Temp 97.6(O); Pulse Ox 95% on R/A; Weight 40.37 kg / 89 dem1 lbs; Height 5 ft. 2 in. (157.48 cm); Pain 9/10; 11:19 BP 109 / 68 (auto/); pml 11:20 Pulse 88 MON; Pulse Ox 97% ; pml 11:34 Pulse 84 MON; Pulse Ox 96% ; pml 11:34 BP 111 / 63 (auto/); pml 11:49 Pulse 84 MON; Pulse Ox 95% ; pml 11:49 BP 100 / 63 (auto/); pml 12:04 Pulse 86 MON; Pulse Ox 95% ; pml 12:04 BP 98 / 64 (auto/); pml 12:19 Pulse 90 MON; Pulse Ox 97% ; pml 12:19 BP 114 / 61 (auto/); pml 12:30 Pain 6/10; pml 12:34 Pulse 90 MON; Pulse Ox 94% ; pml 12:34 BP 104 / 58 (auto/); pml 12:49 Pulse 84 MON; Pulse Ox 94% ; pml 12:49 BP 99 / 60 (auto/); pml 13:04 Pulse 94 MON; Pulse Ox 97% ; pml 13:04 BP 110 / 69 (auto/); pml 13:19 Pulse 82 MON; Pulse Ox 96% ; pml 13:19 BP 106 / 65 (auto/); pml 13:33 BP 102 / 59; Pulse 82; Resp 18; Temp 97.9; Pulse Ox 98% ; Pain 6/10; pml 08:53 Body Mass Index 16.28 (40.37 kg, 157.48 cm) dem1 MDM: 08:28 Aspirin Chewable Tablet 324 mg PO once ordered. fg 08:28 Fisheries Enforcement Officer/Pulse Ox/q 30 min VS ordered. fg 08:28 IV Saline Lock ordered. fg 08:28 Rhythm Strip to chart ordered. fg 08:28 Undress patient appropriately for examination ordered. fg 08:29 Basic Metabolic Profile Ordered. EDMS 08:29 CBC with Diff Ordered. EDMS 08:29 Cardiac Injury Profile Ordered. EDMS 08:29 Troponin Ordered. EDMS 08:30 portable chest Ordered. EDMS 08:30 ECG WITH READING ER PHYS+CARDIAG ordered. EDMS 08:37 morphine 2 mg IVP once ordered. fg 08:37 Ondansetron 4 mg IVP once ordered. fg 08:38 CT Chest Angio R/O PE Ordered. EDMS 08:39 Urine Culture Ordered. EDMS 08:39 Urinalysis Ordered. EDMS 09:29 Financial registration complete. mm15 09:46 morphine 2 mg IVP once ordered. fg 09:51 [facility] Payment Agreement was scanned into [employer] and attached to record. mm15 11:26 oxyCODONE-acetaminophen 5 mg-325 mg 1 tabs PO once ordered. fg 11:26 -Incentive Spirometer ordered. fg 08/13 09:21 T-Sheet-- Draft Copy was scanned into [employer] and attached to record. gb 09:21 ECG/EKG was scanned into [employer] and attached to record. gb Administered Medications: 08/12 08:58 Drug: Ondansetron 4 mg [ondansetron HCl 2 mg/mL intravenous solution (2 mL)] Route: pml IVP; Site: left antecubital; 08:59 Drug: Aspirin 324 mg [aspirin 81 mg chewable tablet (4 tabs)] Route: PO; pml 08:59 Drug: morphine 2 mg [morphine 2 mg/mL intravenous cartridge (1 mL)] Route: IVP; Site: pml left antecubital; 09:20 Follow up: Response: No significant change.; Pain is unchanged, physician notified pml 09:49 Drug: morphine 2 mg [morphine 2 mg/mL intravenous cartridge (1 mL)] Route: IVP; Site: pml left antecubital; 11:28 Drug: oxyCODONE-acetaminophen 1 tabs [oxycodone-acetaminophen 5 mg-325 mg tablet (1 pml tabs)] Route: PO; 12:30 Follow up: Pain 6/10 Adult; Response: Pain is decreased pml 13:33 Follow up: Response: Confirmed pt not driving. pml Signatures: Dispatcher [employer] EDMS Esperanza Simms, Reg Reg gb Dorothy Whitaker RN RN jjr Quay, Paulina, RN RN pml Renetta Braswell mm15 Hyacinth Coyle MD MD fg The chart was reviewed and I authenticate all verbal orders and agree with the evaluation and treatment provided.Attachments: 09:51 [facility] Payment Agreement mm15 08/13 09:21 T-Sheet-- Draft Copy gb :21 ECG/EKG gb Chart Complete MTDD
--- NOTE | 2016-08-14 14:36 | EDDOCDS ---
Physician Documentation [facility] Name: Delores Salgado Age: 51 yrs Sex: Female : 1965 Arrival Date: 08/12/2016 Time: 08:25 Bed 11 Private MD: David Becerril PA-C Disposition: 08/12/16 13:04 Discharged to Home/Self Care. Impression: Chest pain, unspecified, Abnormal findings on diagnostic imaging of lung. - Condition is Stable. - Discharge Instructions: Nonspecific Chest Pain. - Prescriptions for Colace 100 mg Oral Capsule - take 1 tablet by ORAL route every 12 hours; 8 tablet. Percocet 5- 325 mg Oral Tablet - take 1 tablet by ORAL route every 8-12 hours As needed MDD: 4 tabs; 10 tablet. - Medication Reconciliation, Local Pharmacy Hours form. - Work Release Form - 2 day (08/12/16 14:02). pml - Follow up: David Becerril; When: Call to arrange an appointment; Reason: Continuance of care. - Problem is new. - Symptoms are unchanged. - Notes: You have been evalutated for chest pain. Your CT showed ateletasis verses infiltrate or early infection. You are currently on an antibiotic that is appropriate for a developing pneumonia. Please follow up with us within the next 1-2 days if you are not feeling better. If you are improving, I would like you to follow up with your PCP on Monday. Historical: - Allergies: PENICILLINS (Unknown); - Home Meds: 1. metoclopramide HCl 10 mg Oral tab QID prn 2. omeprazole 20 mg Oral cpDR 1 cap once daily (Last dose: 08/11/2016) 3. Tussionex Pennkinetic ER 10-8 mg/5 mL Oral su12 5 mL every 12 hours 4. clarithromycin 500 mg Oral tab 1 tab every 12 hours 5. fluticasone 50 mcg/actuation nasal spsn 1 spray once daily - PMHx: GERD; - PSHx: Appendectomy; Hysterectomy; Tonsillectomy; Adenoidectomy; Cholecystectomy; - Social history: Smoking status: Patient states was never smoker of tobacco. No barriers to communication noted, The patient speaks fluent [place]ian. - Family history: Not pertinent. - : The pt / caregiver states he / she is not on anticoagulants. Home medication list is obtained from the patient. - Exposure Risk Screening:: None identified. 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 2 in. (157.48 cm); Pain 9/10; 11:19 BP 109 / 68 (auto/); pml 11:20 Pulse 88 MON; Pulse Ox 97% ; pml 11:34 Pulse 84 MON; Pulse Ox 96% ; pml 11:34 BP 111 / 63 (auto/); pml 11:49 Pulse 84 MON; Pulse Ox 95% ; pml 11:49 BP 100 / 63 (auto/); pml 12:04 Pulse 86 MON; Pulse Ox 95% ; pml 12:04 BP 98 / 64 (auto/); pml 12:19 Pulse 90 MON; Pulse Ox 97% ; pml 12:19 BP 114 / 61 (auto/); pml 12:30 Pain 6/10; pml 12:34 Pulse 90 MON; Pulse Ox 94% ; pml 12:34 BP 104 / 58 (auto/); pml 12:49 Pulse 84 MON; Pulse Ox 94% ; pml 12:49 BP 99 / 60 (auto/); pml 13:04 Pulse 94 MON; Pulse Ox 97% ; pml 13:04 BP 110 / 69 (auto/); pml 13:19 Pulse 82 MON; Pulse Ox 96% ; pml 13:19 BP 106 / 65 (auto/); pml 13:33 BP 102 / 59; Pulse 82; Resp 18; Temp 97.9; Pulse Ox 98% ; Pain 6/10; pml 08:53 Body Mass Index 16.28 (40.37 kg, 157.48 cm) dem1 MDM: 08:28 Aspirin Chewable Tablet 324 mg PO once ordered. fg 08:28 Mud Mill Tender/Pulse Ox/q 30 min VS ordered. fg 08:28 IV Saline Lock ordered. fg 08:28 Rhythm Strip to chart ordered. fg 08:28 Undress patient appropriately for examination ordered. fg 08:29 Basic Metabolic Profile Ordered. EDMS 08:29 CBC with Diff Ordered. EDMS 08:29 Cardiac Injury Profile Ordered. EDMS 08:29 Troponin Ordered. EDMS 08:30 portable chest Ordered. EDMS 08:30 ECG WITH READING ER PHYS+CARDIAG ordered. EDMS 08:37 morphine 2 mg IVP once ordered. fg 08:37 Ondansetron 4 mg IVP once ordered. fg 08:38 CT Chest Angio R/O PE Ordered. EDMS 08:39 Urine Culture Ordered. EDMS 08:39 Urinalysis Ordered. EDMS 09:29 Financial registration complete. mm15 09:46 morphine 2 mg IVP once ordered. fg 09:51 [facility] [place] Payment Agreement was scanned into [employer] ([employer]) and attached to record. mm15 11:26 oxyCODONE-acetaminophen 5 mg-325 mg 1 tabs PO once ordered. fg 11:26 -Incentive Spirometer ordered. fg 08/13 09:21 T-Sheet-- Draft Copy was scanned into [employer] ([employer]) and attached to record. gb 09:21 ECG/EKG was scanned into [employer] ([employer]) and attached to record. gb Administered Medications: 08/12 08:58 Drug: Ondansetron 4 mg [ondansetron HCl 2 mg/mL intravenous solution (2 mL)] Route: pml IVP; Site: left antecubital; 08:59 Drug: Aspirin 324 mg [aspirin 81 mg chewable tablet (4 tabs)] Route: PO; pml 08:59 Drug: morphine 2 mg [morphine 2 mg/mL intravenous cartridge (1 mL)] Route: IVP; Site: pml left antecubital; 09:20 Follow up: Response: No significant change.; Pain is unchanged, physician notified pml 09:49 Drug: morphine 2 mg [morphine 2 mg/mL intravenous cartridge (1 mL)] Route: IVP; Site: pml left antecubital; 11:28 Drug: oxyCODONE-acetaminophen 1 tabs [oxycodone-acetaminophen 5 mg-325 mg tablet (1 pml tabs)] Route: PO; 12:30 Follow up: Pain 6/10 Adult; Response: Pain is decreased pml 13:33 Follow up: Response: Confirmed pt not driving. pml Signatures: Dispatcher [employer] EDMS Esperanza Simms, Reg Reg gb Dorothy Whitaker RN RN jjr Quay, Paulina, RN RN pml Renetta Braswell mm15 Hyacinth Coyle MD MD fg The chart was reviewed and I authenticate all verbal orders and agree with the evaluation and treatment provided.Attachments: 09:51 [facility] Payment Agreement mm15 08/13 09:21 T-Sheet-- Draft Copy gb :21 ECG/EKG gb Chart Complete MTDD
== END 2016-08-12 13:35 | disposition home or self-care (01) ==
LOC: M ED 08:25
DX: R07.9 Chest pain, unspecified (principal); K21.9 Gastro-esophageal reflux disease without esophagitis; Z79.899 Other long term (current) drug therapy; Z88.0 Allergy status to penicillin
CPT/HCPCS: 36415; 71010; 71275; 80048; 82550; 82553; 84484; 85025; 93005; 93041; 96374; 96375; 96376; 99284; J2405; Q9967

== ENCOUNTER 2017-03-24 12:01 | Emergency (ER) | payer OTHER ==
[~2017-03-24] VITALS: Ht 157.5 cm; Wt 40.9 kg
[~2017-03-24 12:01] MED LIST changes: +AZIT-12 PO; -AZIT250T3 PO; +CIPR-249 PO; -CIPR500T89 PO
[2017-03-24] MEDS ORDERED: IPRATROPIUM 0.5MG/ALBUTEROL 2.5MG INH SOL UD 3ML (DUONEB)(J7620) NEB ONE (13:30)
[2017-03-24] MEDS ORDERED: AZITHROMYCIN 250 MG TAB PO ONE (13:30)
[2017-03-24] MEDS ORDERED: IBUPROFEN 800 MG TAB PO ONE (13:30)
[2017-03-24] MEDS ORDERED: ONDANSETRON 4 MG ORAL DISINTEGRATING TAB (S0181) PO ONE (13:30)
--- NOTE | 2017-03-24 13:46 | REP ---
CHEST: Two views. COMPARISON: 10/28/2014 There is no evidence of acute infiltrate. No pleural effusion is seen. The heart is normal in size. The mediastinal silhouette is unremarkable. The visualized osseous structures are intact. IMPRESSION: No acute pulmonary disease. Signed by Real Moe MD 03/24/2017 05:18 P
[2017-03-24] MEDS ORDERED: ZITHTAB PO (14:17)
[2017-03-24] MEDS ORDERED: ALBU17IN INH (14:17)
[2017-03-24 14:25] VITALS: BP 107/63
--- NOTE | 2017-03-25 08:19 | ECGEPIP ---
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
== END 2017-03-24 14:27 | disposition home or self-care (01) ==
LOC: M ED 12:01
DX: J45.901 Unspecified asthma with (acute) exacerbation (principal); J20.9 Acute bronchitis, unspecified; E78.70 Disorder of bile acid and cholesterol metabolism, unspecified; Z88.8 Allergy status to other drugs, medicaments and biological substances; Z88.0 Allergy status to penicillin

== ENCOUNTER → 2017-09-21 | Outpatient (CLI) | payer OTHER | LOC: M WHC 07:44 | DX: Z12.31 Encounter for screening mammogram for malignant neoplasm of breast (principal); Z78.0 Asymptomatic menopausal state; R92.8 Other abnormal and inconclusive findings on diagnostic imaging of breast | CPT/HCPCS: 77067 ==

== ENCOUNTER 2018-07-11 09:43 | Day surgery (SDC) | payer OTHER ==
[~2018-07-11] VITALS: Ht 157.5 cm; Wt 40.6 kg
[~2018-07-11 09:43] MED LIST changes: +ATOR40TA75 PO; +NS 1,000 ML IV SCH; +PROTPAK PO; +VENTAER INH; +VITA100067 PO; +ZITHTAB PO
[2018-07-11] MEDS ORDERED: fentaNYL 100 MCG/2 ML INJECTION (J3010) As Ordered ONE (10:06)
--- NOTE | 2018-07-11 10:56 | ROOR ---
Patient Name: Delores Salgado Procedure Date: 07/11/2018 10:36 AM Date of : 1965 Age: 53 Room: [facility] Gender: Female Note Status: Finalized Procedure: Upper GI endoscopy Indications: Epigastric abdominal pain, Heartburn Providers: Harman Joseph MD Referring MD: Olinda CARO [facility] Olinda CARO [facility], Admin. Requesting Provider: Medicines: Monitored Anesthesia Care Complications: No immediate complications. Procedure: Pre-Anesthesia Assessment: - Prior to the procedure, a History and Physical was performed, and patient medications and allergies were reviewed. The patient is competent. The risks and benefits of the procedure and the sedation options and risks were discussed with the patient. All questions were answered and informed consent was obtained. Patient identification and proposed procedure were verified by the physician, the nurse and the children's literature professor in the procedure room. Mental Status Examination: alert and oriented. Airway Examination: normal oropharyngeal airway and neck mobility. Respiratory Examination: clear to auscultation. CV Examination: normal. Prophylactic Antibiotics: The patient does not require prophylactic antibiotics. Prior Anticoagulants: The patient has taken no previous anticoagulant or antiplatelet agents. ASA Grade Assessment: II - A patient with mild systemic disease. After reviewing the risks and benefits, the patient was deemed in satisfactory condition to undergo the procedure. The anesthesia plan was to use monitored anesthesia care (MAC). Immediately prior to administration of medications, the patient was re-assessed for adequacy to receive sedatives. The heart rate, respiratory rate, oxygen saturations, blood pressure, adequacy of pulmonary ventilation, and response to care were monitored throughout the procedure. The physical status of the patient was re-assessed after the procedure. The Endoscope was introduced through the mouth, and advanced to the second part of duodenum. The upper GI endoscopy was accomplished without difficulty. The patient tolerated the procedure well. Findings: The middle third of the esophagus and lower third of the esophagus were normal. The Z-line was regular and was found 35 cm from the incisors. Diffuse atrophic mucosa was found in the entire examined stomach. This was biopsied with a cold forceps for histology and Helicobacter pylori testing. Estimated blood loss was minimal. Bilious fluid was found in the gastric body. The examined duodenum was normal. Impression: - Normal middle third of esophagus and lower third of esophagus. - Z-line regular, 35 cm from the incisors. - Gastric mucosal atrophy. Biopsied. - Bilious gastric fluid. - Normal examined duodenum. Recommendation: - Discharge patient to home (ambulatory). - Use Protonix (pantoprazole) 40 mg PO BID for 6 weeks. Harman Joseph MD Harman Joseph MD 07/11/2018 10:55:45 AM This report has been signed electronically. Number of Addenda: 0 Note Initiated On: 07/11/2018 10:36 AM Estimated Blood Loss: Estimated blood loss was minimal.
[2018-07-11 11:15] VITALS: BP 96/57
[2018-07-11] MEDS ORDERED: PROPOFOL 200 MG/20 ML VIAL As Ordered ONE (11:31)
[2018-07-11] MEDS ORDERED: LIDOCAINE 2% INJ 100 MG/5 ML SDV (FOR ANES.) As Ordered ONE (11:31)
== END 2018-07-11 11:40 | disposition home or self-care (01) ==
LOC: M OPP 09:43
PROVIDERS: ATTEND Surgery
DX: R10.13 Epigastric pain (principal); K29.50 Unspecified chronic gastritis without bleeding; Z79.899 Other long term (current) drug therapy; Z88.0 Allergy status to penicillin; Z88.8 Allergy status to other drugs, medicaments and biological substances
CPT/HCPCS: 43239; 88305; J3010

== ENCOUNTER 2018-08-12 09:25 | Emergency (ER) | payer OTHER ==
[~2018-08-12] VITALS: Ht 157.5 cm; Wt 38.6 kg
[~2018-08-12 09:25] MED LIST changes: -NS 1,000 ML IV SCH
[2018-08-12] MEDS ORDERED: NS 1,000 ML IV ONE (10:15)
[2018-08-12] MEDS ORDERED: ACETAMINOPHEN 325 MG TAB PO ONE (10:15)
[2018-08-12] MEDS ORDERED: IPRATROPIUM 0.5MG/ALBUTEROL 2.5MG INH SOL UD 3ML (DUONEB)(J7620) NEB PRN (10:15)
[2018-08-12 10:48] LABS: BASO % 0.8 % (0.0-1.0); EOS % 0.8 % (0.0-3.0); HEMATOCRIT 36.2 % (36.0-47.0); HEMOGLOBIN 11.5 g/dl (12.0-15.5); LYMPH # 0.8 10^3/uL (1.5-4.5); LYMPH % 15.7 % (24.0-44.0); MEAN CORPUSCULAR HEMOGLOBIN 29.4 pg (27.0-33.0); MEAN CORPUSCULAR HGB CONC 31.8 g/dl (32.0-36.5); MEAN CORPUSCULAR VOLUME 92.6 fl (80.0-96.0); MONO # 0.5 10^3/uL (0.0-0.8); MONO % 9.9 % (0.0-5.0); NEUTROPHILS # 3.8 10^3/uL (1.8-7.7); NEUTROPHILS % 72.4 % (36.0-66.0); PLATELET COUNT, AUTOMATED 296 10^3/uL (150-450); RED BLOOD COUNT 3.91 10^6/uL (4.00-5.40); WHITE BLOOD COUNT 5.2 10^3/uL (4.0-10.0)
[2018-08-12] MEDS ORDERED: SUCR1SUS PO (10:58)
[2018-08-12 11:11] LABS: INFLUENZA A AMPLIFICATION NEGATIVE (NEGATIVE); INFLUENZA B AMPLIFICATION NEGATIVE (NEGATIVE)
[2018-08-12 11:12] LABS: BLOOD UREA NITROGEN 9 MG/DL (7-18); CARBON DIOXIDE LEVEL 30 MEQ/L (21-32); CHLORIDE LEVEL 103 MEQ/L (98-107); CK-MB VALUE MASS < 1.0 NG/ML (<3.6); CPK CREATINE PHOSPHOKINASE 81 U/L (26-192); CREATININE FOR GFR 0.64 MG/DL (0.55-1.30); GLOMERULAR FILTRATION RATE > 60.0 (>51); GLUCOSE, FASTING 93 MG/DL (70-100); MB/CK RELATIVE INDEX 1.23 (< OR =4); POTASSIUM SERUM 3.5 MEQ/L (3.5-5.1); SODIUM LEVEL 140 MEQ/L (136-145); TROPONIN I < 0.02 NG/ML (< 0.10)
[2018-08-12] MEDS ORDERED: ISOVUE-370 76% 100ML VIAL (Q9967) As Ordered ONE (11:19)
[2018-08-12] MEDS ORDERED: KETOROLAC 30 MG/ML VIAL (J1885) IV ONE (12:30)
[2018-08-12] MEDS ORDERED: BENZONATATE 100 MG CAP PO ONE (12:30)
--- NOTE | 2018-08-12 12:47 | REP ---
CT ANGIOGRAM CHEST: 08/12/2018. CLINICAL HISTORY: Pleuritic chest pain, mid-left back pain. Family history aneurysm. COMPARISON: CTA 08/12/2016, 10/28/2014. TECHNIQUE: Patient received a bolus 75 mL Isovue 370, scanning through the chest with CTA protocol and with both MIP and standard coronal and sagittal reconstructions. FINDINGS: Curvilinear fibroatelectatic change in the left lower lobe, unchanged from the previous study. There is no pleural effusion, pleural thickening, pleural-based mass, or calcific pleural plaque. No infiltrate, mass, nodule, or pneumothorax. No pneumomediastinum. The heart is not enlarged. There is no pericardial thickening or effusion. Thoracic aorta from its origin through the ascending, arch, and descending portion shows no aneurysm or dissection. That portion of upper abdominal aorta also unremarkable. The main, right and left pulmonary arteries and the mediastinum are without filling defect. The lobar, segmental, and subsegmental vessels are well seen and without a filling defect or vessel cutoff on either side. There is no pathologic-sized mediastinal, hilar, axillary, or supraclavicular adenopathy or mass. There is a low density nodule in the right lobe of the thyroid about 6 mm. It was poorly depicted on previous studies due to bolus timing. The bone windows show sternum, manubrium, clavicles, AC joints, scapulae, humeral heads, ribs, and spine all intact without focal lesion. In the upper abdomen, there are clips from prior cholecystectomy. That portion of liver included is unremarkable. The spleen is not enlarged. Adrenal glands are grossly intact. Upper poles of kidneys are intact. That portion of pancreas included also is unremarkable. Small hiatal hernia suggested. IMPRESSION: 1. There is no CT evidence of pulmonary thromboembolism. 2. There is no thoracic upper abdominal aortic aneurysm, dissection, or other significant finding. 3. No mediastinal, hilar, axillary, supraclavicular adenopathy or mass. 4. Curvilinear fibroatelectatic change in the left lower lobe, unchanged. Stable exam. No acute bony finding. Electronically Signed by Ronnie Temple MD 08/12/2018 07:06 P
[2018-08-12 14:54] LABS: CK-MB VALUE MASS < 1.0 NG/ML (<3.6); CPK CREATINE PHOSPHOKINASE 64 U/L (26-192); MB/CK RELATIVE INDEX 1.56 (< OR =4); TROPONIN I < 0.02 NG/ML (< 0.10)
[2018-08-12] MEDS ORDERED: CHERSYP3 PO (15:17)
[2018-08-12] MEDS ORDERED: NAPR-50 PO (15:17)
[2018-08-12] MEDS ORDERED: PRED20TA PO (15:17)
[2018-08-12 15:38] VITALS: BP 113/57
--- NOTE | 2018-08-13 20:51 | ECGEPIP ---
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
== END 2018-08-12 15:56 | disposition home or self-care (01) ==
LOC: M ED 09:25
DX: J06.9 Acute upper respiratory infection, unspecified (principal); R06.02 Shortness of breath; R05 Cough; R09.1 Pleurisy; B34.9 Viral infection, unspecified; R00.0 Tachycardia, unspecified; I45.19 Other right bundle-branch block; J45.909 Unspecified asthma, uncomplicated; G43.909 Migraine, unspecified, not intractable, without status migrainosus; Z79.899 Other long term (current) drug therapy; Z88.0 Allergy status to penicillin; Z88.8 Allergy status to other drugs, medicaments and biological substances
CPT/HCPCS: 71275; 80048; 82550; 82553; 84484; 85025; 87502; 93005; 93041; 94640; 96361; 96374; 99284; J1885; Q9967

== ENCOUNTER → 2018-12-12 | Outpatient (CLI) | payer OTHER ==
[~2018-12-12] MED LIST changes: +ASPI-1 PO; -ASPI325T PO; +CHERSYP3 PO; +NAPR-837 PO; +OMEP1CAP73 PO; -OMEP20CA3 PO; +PRED20TA PO; +SUCR1ORA PO
--- NOTE | 2018-12-12 10:43 | REPMRS ---
Patient History The patient states she had a clinical breast exam in 11/2018. No known family history of cancer. 3D TOMOSYNTHESIS WAS PERFORMED. [facility] lifetime risk for breast cancer is 7.7%. Digital Woman Screen Mammo: December 12, 2018 - Exam #: [id number] Bilateral CC and MLO view(s) were taken. Technologist: Zita Alejandro, Technologist Prior study comparison: September 21, 2017, digital woman screen mammo performed at [facility]. June 06, 2016, bilateral digital mammo screening bilat, performed at [facility]. FINDINGS: The breast tissue is extremely dense which could obscure a lesion on mammography. There is no evidence of cancer on this mammogram. Large coarse benign appearing calcifications are present. No significant changes when compared with prior studies. Assessment: BI-RADS/ACR category 2 mammogram. Benign Findings. Recommendation Routine screening mammogram of both breasts in 1 year (for women over age 40). This mammogram was interpreted with the aid of an FDA-approved computer-aided dectection system. Electronically Signed By: Real Moe MD 12/12/18 [id number]
== END ==
LOC: M WHC 09:15
PROVIDERS: ATTEND Nurse Practitioner Women's Health
DX: Z12.31 Encounter for screening mammogram for malignant neoplasm of breast (principal)
CPT/HCPCS: 77063; 77067; G0463